=== PATIENT | male | born 1950 | race Caucasian/White ===

== ENCOUNTER → 2020-12-17 | Outpatient (CLI) | payer MEDICARE, OTHER ==
[~2020-12-17] MED LIST: CONSTULOSE 20G/30ML PO; FERROUS GL325 MG/TAB PO; FOLIC ACID 40400 MCG PO; GLUCOPHAGE500 MG/TAB PO; INDERAL 20MG20 MG PO; LOTENSIN 1010 MG/TAB PO; MAGNESIUM250 M1 PO; NEURONTIN300 MG/CAP PO; NYAMYC100000 U/G TP; PRILOSEC 20MG20 MG PO; VITAMIN B125000 MCG PO; VTAMINC250TA PO; XIFAXAN550 MG PO
== END ==
LOC: COL.RAD 07:37
DX: K82.9 Disease of gallbladder, unspecified (principal); K76.89 Other specified diseases of liver; R18.8 Other ascites

== ENCOUNTER 2020-12-21 11:10 | Inpatient (IN) | payer MEDICARE, OTHER ==
[~2020-12-21] VITALS: Ht 172.7 cm; Wt 108.7 kg
[2020-12-21] VITALS (379 sets, daily range): BP systolic 133; BP diastolic 90; PULSE 74; TEMP 97.8; O2SAT 96–100
[2020-12-21 12:44] LABS: INR 1.8 (0.8-3.0); PROTHROMBIN TIME 20.1 SECONDS (9.7-12.8)
[2020-12-21 12:49] LABS: ALBUMIN 2.8 gm/dL (3.5-5.0); BILIRUBIN,TOTAL 3.3 mg/dL (0.0-1.0); CALCIUM 8.4 mg/dL (8.4-10.2); CREATININE, serum 0.9 (0.66-1.25); POTASSIUM 5.6 mmol/L (3.4-5.0); TOTAL PROTEIN 7.2 gm/dL (6.4-8.2)
[2020-12-21 12:55] LABS: BASO % 0.5 % (0.0-2.0); EOS # 0.2 (0.0-0.7); EOS % 4.2 % (0-4.0); GRAN # 3.3 (1.4-6.5); GRAN % 60.9 % (42.2-75.2); LYMPH # 1.3 (1.2-3.4); LYMPH % 24.3 % (20.0-51.0); MEAN CELL VOLUME 107 fl (80.0-100.0); MEAN CORPUSCULAR HGB CONC 33 g/dl (33.0-37.0); MEAN PLATELET VOLUME 11.4 fl (7.4-10.4); MONO # 0.5 (0.1-0.6); MONO % 9.7 % (1.7-9.3); PLATELET COUNT 127 K/mm3 (130-400); RED BLOOD COUNT 2.47 M/mm3 (4.20-5.60); REDCELL DISTRIBUTION WIDTH-CV 16.1 % (11.5-14.5)
[2020-12-21 13:13] LABS: HEMATOCRIT 26.5 % (42.0-52.0); HEMOGLOBIN 8.8 g/dl (13.5-18.0); MEAN CORPUSCULAR HEMOGLOBIN 36 pg (27.0-31.0)
[2020-12-21] MEDS ORDERED: CONSTULOSE 20G/30ML PO (14:27)
[2020-12-21] MEDS ORDERED: VTAMINC250TA PO (14:28)
[2020-12-21] MEDS ORDERED: NYAMYC100000 U/G TP (14:28)
[2020-12-21] MEDS ORDERED: LOTENSIN 1010 MG/TAB PO (14:29)
[2020-12-21] MEDS ORDERED: GLUCOPHAGE500 MG/TAB PO (14:30)
[2020-12-21] MEDS ORDERED: FERROUS GL325 MG/TAB PO (14:30)
[2020-12-21] MEDS ORDERED: NEURONTIN300 MG/CAP PO (14:30)
[2020-12-21] MEDS ORDERED: PRILOSEC 20MG20 MG PO (14:31)
[2020-12-21] MEDS ORDERED: INDERAL 20MG20 MG PO (14:31)
[2020-12-21] MEDS ORDERED: XIFAXAN550 MG PO (14:32)
[2020-12-21 14:49] LABS: COLLECTION METHOD CLEAN CATCH
[2020-12-21 15:29] LABS: MUCOUS Present /lpf; PH 5 (5-8); SQUAMOUS EPITHELIAL None Seen /hpf; URINE APPEARANCE Clear; URINE BACTERIA None Seen /hpf; URINE BILIRUBIN Negative (NEGATIVE); URINE BLOOD Negative (NEGATIVE); URINE COLOR Yellow; URINE GLUCOSE Negative (NEGATIVE); URINE KETONE Negative (NEGATIVE); URINE LEUKOCYTE ESTERASE Negative (NEGATIVE); URINE NITRATE Negative (NEGATIVE); URINE PROTEIN(semi-quant) Negative (NEGATIVE); URINE RBC 0-2 /hpf
[2020-12-21 16:53] LABS: PERITONEAL -POLYMORPHONUCLEAR 25.6 % (0-25); PERITONEAL FLUID RBC 0 /mm3 (0-0)
[2020-12-21] MEDS ORDERED: MAGNESIUM250 M1 PO (18:07)
[2020-12-21] MEDS ORDERED: FOLIC ACID 40400 MCG PO (18:08)
[2020-12-21] MEDS ORDERED: VITAMIN B125000 MCG PO (18:09)
--- NOTE | 2020-12-21 19:20 | NUR ---
Report received from Rickey BANKS. Pt resting with eyes closed at this time.
--- NOTE | 2020-12-21 20:30 | NUR ---
Pt is noted to have a mild, intermittent stridorous sound with exhalation. Resp sats WNL, no signs of distress, lungs CTA. RT, Hina, was walking by, requested second opinion. If persists or worsens will contact provider.
--- NOTE | 2020-12-21 20:30 | NUR ---
Pt noted during assessment a scant amount of bleeding noted to right upper teeth. Gums assessed with abrasion noted. Once pt cleared mouth, no further bleeding noted at this time.
[2020-12-21 20:50] LABS: CALCIUM 8.2 mg/dL (8.4-10.2); CREATININE, serum 0.83 (0.66-1.25); POTASSIUM 5.4 mmol/L (3.4-5.0)
[2020-12-21 20:52] LABS: HEMOGLOBIN 7.9 g/dl (13.5-18.0)
[2020-12-21 21:56] LABS: IRON,SERUM 120 ug/dL (35-150)
[2020-12-21 22:05] LABS: TOTAL IRON BINDING CAPACITY 178 ug/dL (261-462)
--- NOTE | 2020-12-21 22:20 | NUR ---
Pts spouse called for an update on pt. Answered questions which included: pt has received evening dose of Lactulose although has not had a bowel movement. Spouse reports pt had not had one since last night. Vitals are stable. Pt has no complaints. Is alert and oriented, answering questions to what this nurse feels is appropriate. Discussion about [place], moving here, kids, town, , year. Pt had jello and has been drinking water. Is on clear liquid diet. Pt reports understanding of procedure scheduled for tomorrow, even making hand jestures consistent with what procedure will be performed. Denies any questions about procedure at this time. Spouse reports that the only discussion that was had with her was in the ED. Has not spoke with a physician since pt was admitted into this unit. Pt is currently resting with eyes closed in bed. Pt room number provided to spouse. 4 digit passcode was verified prior to the previous conversation. Encouraged to call with any further questions or request for updates. Will call with any change in pt condition through out this shift.
[2020-12-22] VITALS (984 sets, daily range): BP systolic 94–140; BP diastolic 51–88; PULSE 68–79; TEMP 97.3–98.7; O2SAT 95–100
[2020-12-22 04:35] LABS: MEAN CELL VOLUME 106 fl (80.0-100.0); MEAN CORPUSCULAR HGB CONC 33 g/dl (33.0-37.0); MEAN PLATELET VOLUME 10.6 fl (7.4-10.4); PLATELET COUNT 114 K/mm3 (130-400); RED BLOOD COUNT 2.16 M/mm3 (4.20-5.60)
[2020-12-22 04:36] LABS: HEMATOCRIT 22.9 % (42.0-52.0); HEMOGLOBIN 7.6 g/dl (13.5-18.0); MEAN CORPUSCULAR HEMOGLOBIN 35 pg (27.0-31.0)
--- NOTE | 2020-12-22 04:39 | NUR ---
Pt has been pleasant and cooperative with each encounter through out shift. Is currently resting in bed. Requested some wet mouth swabs for dry mouth. Denies any complaints. Is using the urinal at bedside as needed. No further bleeding noted to gums. A&O to self, time, situation and current events.
[2020-12-22 04:45] LABS: ALBUMIN 2.5 gm/dL (3.5-5.0); BILIRUBIN,TOTAL 3.4 mg/dL (0.0-1.0); CREATININE, serum 0.83 (0.66-1.25); POTASSIUM 5.2 mmol/L (3.4-5.0); TOTAL PROTEIN 6.8 gm/dL (6.4-8.2)
--- NOTE | 2020-12-22 09:28 | NUR ---
Initial visit; Patient thanked Wallet Assembler for looking in on him and offering comfort and prayer.
--- NOTE | 2020-12-22 14:29 | NUR ---
PT here at 1420 from express unit. PT is ambulatory with a steady gait. PT moved to bed and has zero complaints. Vitals WNL limits. No bleeding, oozing, or bruising of catheter insertion site.
[2020-12-22 19:15] LABS: FOLATE (FOLIC ACID) 14.8 ng/mL (7.0-31.4)
--- NOTE | 2020-12-22 20:03 | NUR ---
PATIENT LYING ON RIGHT SIDE, AWAKENS EASILY, DENIES PAIN OR WEAKNESS AT THIS TIME.
--- NOTE | 2020-12-23 09:45 | NUR ---
Follow-up visit; Patient appeared to feel better today and stated he was going to start going to moravian and pray. Sales Operations Manager offered God's blessings and wished him well.
[2020-12-24 01:04] VITALS: BP 112/56; PULSE 78; TEMP 97.8
--- NOTE | 2020-12-24 04:36 | NUR ---
PATIENT HAD A GOOD NIGHT SLEEP.DENIES PAIN,NO BLEEDING OBSERVED.POSSIBLE DISCHARGE TODAY.
[2020-12-24 04:47] VITALS: BP 107/79; PULSE 70; TEMP 97.8
[2020-12-24 07:10] LABS: MEAN CELL VOLUME 103 fl (80.0-100.0); MEAN CORPUSCULAR HGB CONC 34 g/dl (33.0-37.0); MEAN PLATELET VOLUME 11.3 fl (7.4-10.4); PLATELET COUNT 75 K/mm3 (130-400); RED BLOOD COUNT 2.14 M/mm3 (4.20-5.60); REDCELL DISTRIBUTION WIDTH-CV 16.5 % (11.5-14.5)
[2020-12-24 07:21] LABS: HEMOGLOBIN 7.4 g/dl (13.5-18.0); MEAN CORPUSCULAR HEMOGLOBIN 35 pg (27.0-31.0)
[2020-12-24 07:35] LABS: ALBUMIN 2.2 gm/dL (3.5-5.0); BILIRUBIN,TOTAL 2.5 mg/dL (0.0-1.0); CALCIUM 8.1 mg/dL (8.4-10.2); CREATININE, serum 0.97 (0.66-1.25); POTASSIUM 4.5 mmol/L (3.4-5.0); TOTAL PROTEIN 6.1 gm/dL (6.4-8.2)
[2020-12-24 08:07] VITALS: BP 105/68; PULSE 72; TEMP 97.7
--- NOTE | 2020-12-24 08:54 | NUR ---
Senior Communications Engineer met with patient to discuss discharge planning. Patient lives in [place] with his , Nella (ph#[phone]) and his son, Tin. Patient states he does not have a primary care physician but is working on it. SW offered to make him an appointment but patient declined. Patient cannot remember what pharmacy he uses but states his would know. Patient does not use any DME and reports independence with ADLS. Patient plans to return home upon discharge. SW will continue to follow.
--- NOTE | 2020-12-24 09:46 | NUR ---
Follow-up visit; Patient and his thanked Record Pressman for coming in and meeting his and offering God's blessings to them.
[2020-12-24] MEDS ORDERED: LASIX 40MG TABL40 MG PO (10:49)
--- NOTE | 2020-12-24 10:54 | NUR ---
Project Production Engineer attended clinical rounds with the team. The patient's was in the room. The patient is independent in the room. PT signed off. The patient's PCP is Dr. Rodriguez. Plan is home.
[2020-12-24] MEDS ORDERED: XIFAXAN550 MG PO (10:55)
--- NOTE | 2020-12-24 12:55 | NUR ---
Discharge instructions given to the patient and his , instructed to take meds as prescribed, follow up as scheduled with PCP and GI, meds as prescribed, scripts sent to pharmacy for him, PICC line removed and post instructions given, leaving with his and BAD WORK GATHERER escorting them out
--- NOTE | 2020-12-24 14:04 | NUR ---
Primary nurse was assisted with [id number] patient care by [employer] [employer] student Rosa Rodriguez and [employer] instructor Monica Vann RN-BC.
[2020-12-24 16:36] LABS: HEMATOCRIT 23.8 % (42.0-52.0); HEMOGLOBIN 7.8 g/dl (13.5-18.0)
[2020-12-24 16:37] LABS: CREATININE, serum 1.06 (0.66-1.25); POTASSIUM 4.9 mmol/L (3.4-5.0)
[2020-12-24 23:51] LABS: HEMATOCRIT 20.3 % (42.0-52.0); MEAN CELL VOLUME 104 fl (80.0-100.0); MEAN CORPUSCULAR HEMOGLOBIN 36 pg (27.0-31.0); MEAN CORPUSCULAR HGB CONC 35 g/dl (33.0-37.0); PLATELET COUNT 88 K/mm3 (130-400); RED BLOOD COUNT 1.96 M/mm3 (4.20-5.60); REDCELL DISTRIBUTION WIDTH-CV 15.8 % (11.5-14.5)
[2020-12-24 23:52] LABS: BASO % 0.5 % (0.0-2.0); EOS # 0.2 (0.0-0.7); EOS % 3.9 % (0-4.0); GRAN # 2.1 (1.4-6.5); GRAN % 51.5 % (42.2-75.2); LYMPH # 1.3 (1.2-3.4); LYMPH % 30.5 % (20.0-51.0); MEAN PLATELET VOLUME 11.2 fl (7.4-10.4); MONO # 0.6 (0.1-0.6); MONO % 13.4 % (1.7-9.3)
== END 2020-12-24 12:58 | disposition home or self-care (01) | DRG 394 ==
LOC: COL.ER 11:10 → ICU 15:16 → MEDICAL 15:16
PROVIDERS: Family Medicine; Hospitalist; Internal Medicine Gastroenterology; Physician Assistant; ADMIT Student in an Organized Health Care Education/Training Program
PROC: 02HV33Z Insertion of Infusion Device into Superior Vena Cava, Percutaneous Approach (ICD-10-PCS; 2020-12-21)
PROC: 0DB68ZX Excision of Stomach, Via Natural or Artificial Opening Endoscopic, Diagnostic (ICD-10-PCS; 2020-12-22)
PROC: 0W9G3ZZ Drainage of Peritoneal Cavity, Percutaneous Approach (ICD-10-PCS; principal; 2020-12-22 10:30)
DX: K64.8 Other hemorrhoids (principal); R18.8 Other ascites; K29.30 Chronic superficial gastritis without bleeding; D53.9 Nutritional anemia, unspecified; K72.90 Hepatic failure, unspecified without coma; K74.60 Unspecified cirrhosis of liver; E87.5 Hyperkalemia; E11.9 Type 2 diabetes mellitus without complications; K21.9 Gastro-esophageal reflux disease without esophagitis; D69.6 Thrombocytopenia, unspecified; I10 Essential (primary) hypertension; E11.40 Type 2 diabetes mellitus with diabetic neuropathy, unspecified; K75.81 Nonalcoholic steatohepatitis (NASH)
CPT/HCPCS: 99223-AI; 99233-AI; 99239; C1751; C1892; C9113; J0696; J2405; J2704; J7030; P9016; Q9967

== ENCOUNTER 2021-01-24 23:27 | Inpatient (IN) | payer MEDICARE, OTHER ==
[~2021-01-24] VITALS: Ht 177.8 cm; Wt 109.7 kg
[~2021-01-24 23:27] MED LIST changes: +LASIX 40MG TABL40 MG PO
[2021-01-24 23:47] LABS: BASO % 0.2 % (0.0-2.0); EOS # 0.1 (0.0-0.7); EOS % 1.6 % (0-4.0); GRAN # 6.7 (1.4-6.5); GRAN % 83.1 % (42.2-75.2); LYMPH # 0.6 (1.2-3.4); LYMPH % 7.1 % (20.0-51.0); MEAN CELL VOLUME 107 fl (80.0-100.0); MEAN CORPUSCULAR HGB CONC 32 g/dl (33.0-37.0); MEAN PLATELET VOLUME 11.8 fl (7.4-10.4); MONO # 0.6 (0.1-0.6); MONO % 7.5 % (1.7-9.3); PLATELET COUNT 83 K/mm3 (130-400); RED BLOOD COUNT 2.08 M/mm3 (4.20-5.60); REDCELL DISTRIBUTION WIDTH-CV 16.3 % (11.5-14.5)
[2021-01-24 23:49] LABS: HEMATOCRIT 22.2 % (42.0-52.0); HEMOGLOBIN 7.2 g/dl (13.5-18.0); MEAN CORPUSCULAR HEMOGLOBIN 35 pg (27.0-31.0)
[2021-01-24 23:52] LABS: INR 2.1 (0.8-3.0); PROTHROMBIN TIME 23.5 SECONDS (9.7-12.8)
[2021-01-24 23:54] LABS: PARTIAL THROMBOPLASTIN TIME 39.2 SECONDS (26.0-37.0)
[2021-01-24 23:55] LABS: ALANINE AMINOTRANSFERASE 34 U/L (4-49); ALBUMIN 2.3 gm/dL (3.5-5.0); ALKALINE PHOSPHATASE 189 U/L (50-136); ANION GAP 9 mmol/L (7-16); AST,SGOT 91 U/L (15-37); BILIRUBIN,TOTAL 2.9 mg/dL (0.0-1.0); BLOOD UREA NITROGEN 28 mg/dL (9-20); CALCIUM 7.8 mg/dL (8.4-10.2); CARBON DIOXIDE 19 mmol/L (22-30); CHLORIDE 106 mmol/L (98-107); CREATININE, serum 1.53 (0.66-1.25); GLUCOSE 147 mg/dL (74-106); LIPASE 206 U/L (23-300); POTASSIUM 4.6 mmol/L (3.4-5.0); SODIUM 134 mmol/L (137-145); TOTAL PROTEIN 6.7 gm/dL (6.4-8.2)
[2021-01-24 23:57] LABS: LACTIC ACID 4.3 mmol/L (0.4-2.0)
[2021-01-25] VITALS (359 sets, daily range): BP systolic 102–125; BP diastolic 61–101; PULSE 67–80; TEMP 98–98.4; O2SAT 88–99
[2021-01-25 00:13] LABS: TROPONIN-I < 0.012 ng/mL (0.000-0.035)
[2021-01-25] MEDS ORDERED: MAGNESIUM250 M1 PO (00:37)
[2021-01-25] MEDS ORDERED: NEURONTIN100 MG/CAP PO (01:50)
[2021-01-25] MEDS ORDERED: TYLENOL PM EXTR1 TA1 PO (01:51)
[2021-01-25 02:29] LABS: PERITONEAL -POLYMORPHONUCLEAR 26.8 % (0-25); PERITONEAL FLUID RBC 4000 /mm3 (0-0)
[2021-01-25 02:41] LABS: BASO % 0.2 % (0.0-2.0); EOS # 0.1 (0.0-0.7); EOS % 0.8 % (0-4.0); GRAN # 4.9 (1.4-6.5); GRAN % 83.2 % (42.2-75.2); LYMPH # 0.4 (1.2-3.4); LYMPH % 6.1 % (20.0-51.0); MEAN CELL VOLUME 105 fl (80.0-100.0); MEAN CORPUSCULAR HGB CONC 32 g/dl (33.0-37.0); MEAN PLATELET VOLUME 11.5 fl (7.4-10.4); MONO # 0.5 (0.1-0.6); MONO % 8.9 % (1.7-9.3); PLATELET COUNT 63 K/mm3 (130-400); RED BLOOD COUNT 2.02 M/mm3 (4.20-5.60); REDCELL DISTRIBUTION WIDTH-CV 16.1 % (11.5-14.5)
[2021-01-25 02:43] LABS: HEMATOCRIT 21.3 % (42.0-52.0); HEMOGLOBIN 6.9 g/dl (13.5-18.0); MEAN CORPUSCULAR HEMOGLOBIN 34 pg (27.0-31.0)
--- NOTE | 2021-01-25 03:43 | NUR ---
Vancomycin Initial Dosing Pharmacy Note Ordering provider: Diego Cevallos MD 70 yo M Indication: Fever of Unknown origin Goal: 15-20 Hx: None identified PMH significant for cirrhosis of the liver w/ MELD score of 25. BMI: 32.4 Wt: 102.3 KG adjBW: 84.7 kg SCr: 1.53 adjBW estCrCl ~ 54 ml/min t 1/2 ~ 14h Tmax: 100.3 WBC WNL LA 4.3 -> 3.3 Micro ordered peritoneal fluid analysis: yellow, hazy, 295 WBC, 4000 RBC, Mononuclear WBC 73.2%, polynuclear WBC 26.8% Pt received 1.5 gm (~15 MG/KG) X1 LD IN ED. Will start a maintenance regimen of 1250 mg q18h. Pt is at risk for not following population based kinetics and accumulation 2/2 elevated BMI. Will follow renal function, micro and plan of care for need to adjust therapy. Thank you for this dosing consult!
--- NOTE | 2021-01-25 03:49 | NUR ---
Patient arrived from the emergency department via stretcher around 310AM. He denies pain, SOB, dizziness. His vitals are stable. Blood Pressure is 118/60. Oxygen saturation is 100% on room air, HR is 69 and respirations are 16 breaths per minute. I spoke with RACHAEL about his hemoglobin level of 6.9 during his labs in the emergency department and they will order one unit of PRBC. He currently has NS running at 100 ml/hr. Zosyn, Vancomyocin and Protonix, all IV.
[2021-01-25 05:21] LABS: BASO % 0.2 % (0.0-2.0); EOS % 0.4 % (0-4.0); GRAN # 4.6 (1.4-6.5); GRAN % 85.2 % (42.2-75.2); LYMPH # 0.4 (1.2-3.4); LYMPH % 6.5 % (20.0-51.0); MEAN CELL VOLUME 107 fl (80.0-100.0); MEAN CORPUSCULAR HGB CONC 32 g/dl (33.0-37.0); MEAN PLATELET VOLUME 11.5 fl (7.4-10.4); MONO # 0.4 (0.1-0.6); MONO % 7.1 % (1.7-9.3); PLATELET COUNT 59 K/mm3 (130-400); RED BLOOD COUNT 1.94 M/mm3 (4.20-5.60); REDCELL DISTRIBUTION WIDTH-CV 16.3 % (11.5-14.5)
[2021-01-25 05:26] LABS: HEMATOCRIT 20.8 % (42.0-52.0); HEMOGLOBIN 6.7 g/dl (13.5-18.0); MEAN CORPUSCULAR HEMOGLOBIN 35 pg (27.0-31.0)
[2021-01-25 05:33] LABS: ALBUMIN 2.2 gm/dL (3.5-5.0); BILIRUBIN,TOTAL 3.3 mg/dL (0.0-1.0); CALCIUM 7.5 mg/dL (8.4-10.2); CREATININE, serum 1.56 (0.66-1.25); TOTAL PROTEIN 6.5 gm/dL (6.4-8.2)
--- NOTE | 2021-01-25 05:35 | NUR ---
The physician from [facility] ordered 1 unit of PRBC for a Hemoglobin of 6.9. I spoke to Lab and they said the order isn't done corrently. I will speak to Antoinette MORENO to put in an order. Blood consent is signed.
[2021-01-25 06:58] LABS: IRON,SERUM 72 ug/dL (35-150)
[2021-01-25 07:07] LABS: TOTAL IRON BINDING CAPACITY 181 ug/dL (261-462)
--- NOTE | 2021-01-25 07:15 | NUR ---
RECEIVED REPORT FROM DARREN ANDERSON. PT SITTING UP IN BED TALKING TO DR HALL. PT ON RA. VSS. CALLL LIGHT WITHIN REACH.
[2021-01-25 07:57] LABS: COLLECTION METHOD CLEAN CATCH
[2021-01-25 08:03] LABS: MUCOUS Present /lpf; PH 5 (5-8); SQUAMOUS EPITHELIAL None Seen /hpf; URINE APPEARANCE Hazy; URINE BACTERIA None Seen /hpf; URINE BILIRUBIN Negative (NEGATIVE); URINE BLOOD Negative (NEGATIVE); URINE COLOR Amber; URINE GLUCOSE Negative (NEGATIVE); URINE KETONE Negative (NEGATIVE); URINE LEUKOCYTE ESTERASE Negative (NEGATIVE); URINE NITRATE Negative (NEGATIVE); URINE PROTEIN(semi-quant) Negative (NEGATIVE); URINE RBC 0-2 /hpf; URINE UROBILINOGEN Negative (NEGATIVE)
--- NOTE | 2021-01-25 09:20 | NUR ---
DR PINTO AT BEDSIDE FOR ASSESSMENT. DISCUSSED POC WITH FAMILY AND PT. RN SPOKE TO PROVIDER ABOUT HGB AND INR. NEW ORDERS RECEIVED.
--- NOTE | 2021-01-25 09:42 | NUR ---
Teacher Of The Deaf/Hard Of Hearing attended clinical rounds with the team then followed up with patient to discuss discharge planning. Patient's , Christy (ph#[phone]) is at bedside. Patient and Christy live in [place] with their son, Tin (ph#[phone]) and report they moved here from [place] a few months ago. Patient's primary care physician is Dr. Rodriguez and he obtains medications from [facility] [address] with no difficulties. Patient does not use any DME and reports independence with ADLS. DIAZ asked about DPOA-HC and patient and his report they had it completed in [place] but have not completed a form here in [place]. Both patient and his , Christy would like to complete a new DPOA-HC form while here in the hospital. Patient would like to designate his , Christy and his son, Tin. Patient had some difficulty initially verbalizing understanding as Tajik is his second language. Patient did eventually verbalize understanding of what he would be signing and again stated he wanted to designate his , Christy. DIAZ and Alfreda BANKS provided witness signature. DIAZ provided original and copies to patient, then placed a copy in patient's chart. Patient plans to return home upon discharge.
--- NOTE | 2021-01-25 11:23 | NUR ---
PT TO EGD AT 1043. REPORT RECEIVED FROM DARREN MA AT 1115, PT BACK IN ROOM AND PLACED ON BEDSIDE CONTINUOUS MONITOR AT 1125. VSS. CALL LIGHT WITHIN REACH. PT FULLY AWAKE AT THIS TIME.
--- NOTE | 2021-01-25 11:30 | NUR ---
NOTIFIED DR PINTO OF FINDINGS FROM EGD
--- NOTE | 2021-01-25 16:30 | NUR ---
DR PINTO AT BEDSIDE DISCUSSING POC WITH PT. NEW ORDERS RECEIVED.
[2021-01-25 17:59] LABS: HEMATOCRIT 24.1 % (42.0-52.0); HEMOGLOBIN 7.8 g/dl (13.5-18.0)
[2021-01-25 18:08] LABS: INR 2.2 (0.8-3.0); PROTHROMBIN TIME 25.1 SECONDS (9.7-12.8)
[2021-01-25 19:14] LABS: FOLATE (FOLIC ACID) 17.8 ng/mL (7.0-31.4)
[2021-01-26] VITALS (341 sets, daily range): BP systolic 102–146; BP diastolic 55–98; PULSE 70–87; TEMP 98–98.5; O2SAT 91–99
--- NOTE | 2021-01-26 05:55 | NUR ---
Patient had an uneventful night. His blood pressures has been a little soft, its bests to take it when he is laying on his back with his arms straight. But it's currently 99/54 with a MAP of 84. He is sleeping but very easily arousable. Asymptomatic and denies pain. He has had four bowel movements over night, with is normal because he gets lactulose. His gums are not bleeding. He has no complaints.
--- NOTE | 2021-01-26 05:57 | NUR ---
Patient's (Christy) called around 0445. I gave her an update of the patients condition, he is stable, recieving antibiotics and fluids and he has no complaints. She was very pleased. She only had one concern. She said the patient has a daughter from [place] that is "Sneaky" and she wanted to limit the communication with that daughter to only vague updates. I told her, the daughter has not called while I was on shift. She said "I will inform the rest of the family about the details when the time is right." I told her we respect her wishes and I'll relay the message to dayshift.
[2021-01-26 06:19] LABS: BASO % 0.8 % (0.0-2.0); EOS # 0.1 (0.0-0.7); GRAN # 1.5 (1.4-6.5); GRAN % 61.2 % (42.2-75.2); LYMPH # 0.5 (1.2-3.4); LYMPH % 20.4 % (20.0-51.0); MEAN CELL VOLUME 104 fl (80.0-100.0); MEAN CORPUSCULAR HGB CONC 32 g/dl (33.0-37.0); MEAN PLATELET VOLUME 11.5 fl (7.4-10.4); MONO # 0.4 (0.1-0.6); MONO % 15.2 % (1.7-9.3); PLATELET COUNT 63 K/mm3 (130-400); RED BLOOD COUNT 2.04 M/mm3 (4.20-5.60)
[2021-01-26 06:25] LABS: HEMATOCRIT 21.2 % (42.0-52.0); HEMOGLOBIN 6.8 g/dl (13.5-18.0); INR 2.3 (0.8-3.0); MEAN CORPUSCULAR HEMOGLOBIN 33 pg (27.0-31.0); PROTHROMBIN TIME 26.3 SECONDS (9.7-12.8)
[2021-01-26 06:29] LABS: ALBUMIN 2.2 gm/dL (3.5-5.0); BILIRUBIN,TOTAL 3.1 mg/dL (0.0-1.0); CALCIUM 7.3 mg/dL (8.4-10.2); CREATININE, serum 1.23 (0.66-1.25); MAGNESIUM 2.2 mg/dL (1.6-2.3); POTASSIUM 4.9 mmol/L (3.4-5.0); TOTAL PROTEIN 6.5 gm/dL (6.4-8.2)
--- NOTE | 2021-01-26 07:05 | NUR ---
RECEIVED REPORT FROM DARREN RIGGS. PT SLEEPING AT THIS TIME. CALL LIGHT WITHIN REACH. VSS.
--- NOTE | 2021-01-26 11:46 | NUR ---
DR PINTO AT BEDSIDE FOR ASSESSMENT AND DISCUSSING POC WITH PT AND . NEW ORDERS RECEIVED.
--- NOTE | 2021-01-26 14:21 | NUR ---
Patient worked with PT/OT and recommendation is for home.
--- NOTE | 2021-01-26 14:35 | NUR ---
SPOKE TO DR HALL ABOUT IF SHE WAS COMING BY TODAY. PHYSICIAN STATES YES AFTER CLINIC. INFORMED PHYSICIAN ABOUT PT HAVING MULTIPLE LIQUID BLACK STOOLS.
--- NOTE | 2021-01-26 16:41 | NUR ---
DR HALL AT BEDSIDE FOR ASSESSMENT. INFORMED PHYSICIAN ABOUT HGB AND PRBC TODAY.
[2021-01-26 17:37] LABS: HEMATOCRIT 26.1 % (42.0-52.0); HEMOGLOBIN 8.7 g/dl (13.5-18.0)
[2021-01-27] VITALS: BP 112/66; PULSE 68; TEMP 98.2
[2021-01-27 04:00] VITALS: BP 125/58; PULSE 73; TEMP 98.5
[2021-01-27 05:54] LABS: BASO % 0.7 % (0.0-2.0); EOS # 0.2 (0.0-0.7); EOS % 7.3 % (0-4.0); GRAN # 1.5 (1.4-6.5); HEMATOCRIT 26.1 % (42.0-52.0); HEMOGLOBIN 8.6 g/dl (13.5-18.0); LYMPH # 0.6 (1.2-3.4); LYMPH % 22.6 % (20.0-51.0); MEAN CELL VOLUME 101 fl (80.0-100.0); MEAN CORPUSCULAR HEMOGLOBIN 33 pg (27.0-31.0); MEAN CORPUSCULAR HGB CONC 33 g/dl (33.0-37.0); MEAN PLATELET VOLUME 11.1 fl (7.4-10.4); MONO # 0.4 (0.1-0.6); MONO % 15.7 % (1.7-9.3); PLATELET COUNT 64 K/mm3 (130-400); RED BLOOD COUNT 2.59 M/mm3 (4.20-5.60)
[2021-01-27 06:05] LABS: PROTHROMBIN TIME 22.9 SECONDS (9.7-12.8)
[2021-01-27 06:07] LABS: ALBUMIN 2.1 gm/dL (3.5-5.0); BILIRUBIN,TOTAL 2.6 mg/dL (0.0-1.0); CALCIUM 7.4 mg/dL (8.4-10.2); CREATININE, serum 0.89 (0.66-1.25); MAGNESIUM 2.1 mg/dL (1.6-2.3); POTASSIUM 4.2 mmol/L (3.4-5.0); TOTAL PROTEIN 6.3 gm/dL (6.4-8.2)
--- NOTE | 2021-01-27 07:05 | NUR ---
RECEIVED REPORT FROM DARREN RIGGS. PT SLEEPING. CALL LIGHT WITHIN REACH. VSS.
[2021-01-27 08:00] VITALS: BP 125/80; PULSE 62; TEMP 98.1
--- NOTE | 2021-01-27 10:25 | NUR ---
Initial visit; Patient and his thanked Gun Stock Maker for looking in on Osmani and offering empathy and prayer for him.
--- NOTE | 2021-01-27 10:53 | NUR ---
Talent Development Director attended clinical rounds with the team and patient will return home today. SW met with patient and patient's to check in. Patient states he is ready to go home and has no concerns doing so. Patient and patient's have no further questions at this time.
== END 2021-01-27 12:26 | disposition home or self-care (01) | DRG 441 ==
LOC: COL.ER 23:27 → ICU 01-25 00:57
PROVIDERS: Emergency Medicine; Internal Medicine; Internal Medicine Gastroenterology; Nurse Practitioner Family
PROC: 0DB68ZX Excision of Stomach, Via Natural or Artificial Opening Endoscopic, Diagnostic (ICD-10-PCS; principal; 2021-01-25 11:00)
DX: K76.6 Portal hypertension (principal); K31.811 Angiodysplasia of stomach and duodenum with bleeding; R18.8 Other ascites; N17.9 Acute kidney failure, unspecified; E87.2 Acidosis; D62 Acute posthemorrhagic anemia; D68.4 Acquired coagulation factor deficiency; K72.90 Hepatic failure, unspecified without coma; K74.60 Unspecified cirrhosis of liver; I10 Essential (primary) hypertension; E11.9 Type 2 diabetes mellitus without complications; K21.9 Gastro-esophageal reflux disease without esophagitis; D53.9 Nutritional anemia, unspecified; D69.6 Thrombocytopenia, unspecified; K75.81 Nonalcoholic steatohepatitis (NASH); K31.89 Other diseases of stomach and duodenum; K29.70 Gastritis, unspecified, without bleeding; K27.9 Peptic ulcer, site unspecified, unspecified as acute or chronic, without hemorrhage or perforation; Z87.891 Personal history of nicotine dependence; Z88.7 Allergy status to serum and vaccine; Z20.828 Contact with and (suspected) exposure to other viral communicable diseases; K44.9 Diaphragmatic hernia without obstruction or gangrene
CPT/HCPCS: 99223-AI; 99233-AI; 99239; C9113; J0696; J1815; J2354; J2543; J2704; J3370; J7030; J7040; J7050; P9016

== ENCOUNTER 2021-03-08 02:12 | Observation (INO) | payer MEDICARE ==
[~2021-03-08] VITALS: Ht 175.3 cm; Wt 94.5 kg
[~2021-03-08 02:12] MED LIST changes: +NEURONTIN100 MG/CAP PO; +TYLENOL PM EXTR1 TA1 PO
[2021-03-08 02:35] LABS: BASO # 0.1 (0.0-0.2); BASO % 0.9 % (0.0-2.0); EOS # 0.2 (0.0-0.7); EOS % 3.8 % (0-4.0); GRAN # 3.7 (1.4-6.5); GRAN % 62.8 % (42.2-75.2); LYMPH # 1.3 (1.2-3.4); LYMPH % 21.4 % (20.0-51.0); MEAN CELL VOLUME 99 fl (80.0-100.0); MEAN CORPUSCULAR HGB CONC 35 g/dl (33.0-37.0); MEAN PLATELET VOLUME 10.5 fl (7.4-10.4); MONO # 0.6 (0.1-0.6); MONO % 10.8 % (1.7-9.3); PLATELET COUNT 114 K/mm3 (130-400); RED BLOOD COUNT 2.79 M/mm3 (4.20-5.60); REDCELL DISTRIBUTION WIDTH-CV 15.8 % (11.5-14.5)
[2021-03-08 02:40] LABS: HEMATOCRIT 27.5 % (42.0-52.0); HEMOGLOBIN 9.6 g/dl (13.5-18.0); MEAN CORPUSCULAR HEMOGLOBIN 34 pg (27.0-31.0)
[2021-03-08 02:49] LABS: ALBUMIN 2.7 gm/dL (3.5-5.0); BILIRUBIN,TOTAL 4.7 mg/dL (0.0-1.0); CALCIUM 8.4 mg/dL (8.4-10.2); CREATININE, serum 0.79 (0.66-1.25); POTASSIUM 3.5 mmol/L (3.4-5.0); TOTAL PROTEIN 7.7 gm/dL (6.4-8.2)
[2021-03-08 02:52] LABS: INR 2.4 (0.8-3.0); PROTHROMBIN TIME 26.8 SECONDS (9.7-12.8)
[2021-03-08] MEDS ORDERED: CRESTOR40 MG PO (02:55)
[2021-03-08] MEDS ORDERED: VITAMIN D 50,1.25 MG PO (02:55)
[2021-03-08] MEDS ORDERED: VITAMIN A10k PO (02:56)
[2021-03-08] MEDS ORDERED: CRESTOR5 MG PO (03:53)
[2021-03-08] MEDS ORDERED: ALDACTONE50 MG PO (03:56)
[2021-03-08] MEDS ORDERED: B-121000 MCG PO (03:59)
[2021-03-08 04:46] VITALS: BP 137/71; PULSE 98; TEMP 98.2
--- NOTE | 2021-03-08 05:27 | NUR ---
Patient up to room 323 via stretcher. Oriented to room and call light. Admission and assessment complete. Started on potassium protocol. PAtient has no other needs at this time. Call light in reach.
[2021-03-08 06:38] LABS: HEMATOCRIT 24.7 % (42.0-52.0); HEMOGLOBIN 8.5 g/dl (13.5-18.0)
[2021-03-08 07:34] VITALS: BP 118/47; PULSE 87; TEMP 98.2
--- NOTE | 2021-03-08 07:48 | NUR ---
Dr. Norwood in to see patient.
--- NOTE | 2021-03-08 08:00 | NUR ---
Patient in bed resting. Alert and oriented x 3. Assessment complete. Denies pain at this time. Denies further needs at this time. Spouse at bedside.
--- NOTE | 2021-03-08 09:58 | NUR ---
DIAZ met with the patient and his , Christy (ph#[phone]), to discuss discharge plan. The patient lives in [place] with his , son (Tin, ph#[phone]), and grandson. He reports independence with ADLs and does not have any DME. The patient's PCP is Dr. Abdon Rodriguez and he receives his medications from [facility]. He reports no difficulties obtaining his meds. The patient's DPOA-HC is in EMR and it designates his . The patient plans to return home with his family upon discharge. No additional needs at this time. *Discharge plan: home with family*
[2021-03-08 12:00] VITALS: BP 139/61; PULSE 93; TEMP 98.9
--- NOTE | 2021-03-08 12:42 | NUR ---
First visit from the motorcycle mechanic apprentice. prayed with patient. No other needs right now.
[2021-03-08 13:27] LABS: HEMATOCRIT 23.4 % (42.0-52.0); HEMOGLOBIN 8.1 g/dl (13.5-18.0)
[2021-03-08 16:00] VITALS: BP 132/65; PULSE 95; TEMP 98.6
--- NOTE | 2021-03-08 18:34 | NUR ---
Patient doing well throughout the day, spouse at bedside. Patient working on drinking bowel prep. Denies pain throughout the day. Denies further needs at this time. Will report off to slot shift manager.
[2021-03-08 19:22] VITALS: BP 117/63; PULSE 114; TEMP 98.3
[2021-03-08 23:20] VITALS: BP 126/54; PULSE 93; TEMP 98.9
[2021-03-09] VITALS (11 sets, daily range): BP systolic 107–141; BP diastolic 46–69; PULSE 87–99; TEMP 98.1–98.4
--- NOTE | 2021-03-09 07:00 | NUR ---
Patient to endoscopy.
[2021-03-09 07:07] LABS: BASO % 0.8 % (0.0-2.0); EOS # 0.2 (0.0-0.7); EOS % 4.1 % (0-4.0); GRAN # 2.3 (1.4-6.5); GRAN % 59.4 % (42.2-75.2); LYMPH # 0.9 (1.2-3.4); LYMPH % 22.4 % (20.0-51.0); MEAN CELL VOLUME 100 fl (80.0-100.0); MEAN CORPUSCULAR HGB CONC 35 g/dl (33.0-37.0); MEAN PLATELET VOLUME 10.8 fl (7.4-10.4); MONO # 0.5 (0.1-0.6); MONO % 12.5 % (1.7-9.3); PLATELET COUNT 90 K/mm3 (130-400); RED BLOOD COUNT 2.27 M/mm3 (4.20-5.60)
[2021-03-09 07:17] LABS: HEMATOCRIT 22.6 % (42.0-52.0); HEMOGLOBIN 7.8 g/dl (13.5-18.0); MEAN CORPUSCULAR HEMOGLOBIN 34 pg (27.0-31.0)
[2021-03-09 07:23] LABS: CALCIUM 7.6 mg/dL (8.4-10.2); CREATININE, serum 0.71 (0.66-1.25); POTASSIUM 3.8 mmol/L (3.4-5.0)
[2021-03-09 07:55] LABS: ALBUMIN 2.3 gm/dL (3.5-5.0); TOTAL PROTEIN 6.5 gm/dL (6.4-8.2)
[2021-03-09 08:10] LABS: BILIRUBIN UNCONJUGATED 3.5 mg/dL (0.0-1.1); BILIRUBIN,DIRECT 1.5 mg/dL (0.0-0.4)
--- NOTE | 2021-03-09 09:56 | NUR ---
Initial visit; Patient and thanked Host/Hostess for looking in on him and offering God's blessings, a good recovery and healing.
[2021-03-09 10:26] LABS: INR 2.4 (0.8-3.0); PROTHROMBIN TIME 27.1 SECONDS (9.7-12.8)
[2021-03-09 15:33] LABS: HEMOGLOBIN 7.9 g/dl (13.5-18.0)
--- NOTE | 2021-03-09 18:47 | NUR ---
Patient has done well thoughout the day. Spouse at bedside through the day. Patient denies additional blood with stools. Has been up ambulating throughout the day. Denies further needs at this time. Will report off to rfid technician.
[2021-03-10 03:59] VITALS: BP 110/60; PULSE 88; TEMP 97.9
[2021-03-10 07:13] VITALS: BP 120/63; PULSE 84; TEMP 97.8
[2021-03-10 07:16] LABS: BASO % 0.3 % (0.0-2.0); EOS # 0.1 (0.0-0.7); EOS % 2.4 % (0-4.0); GRAN # 2.1 (1.4-6.5); GRAN % 70.2 % (42.2-75.2); LYMPH # 0.5 (1.2-3.4); LYMPH % 16.3 % (20.0-51.0); MEAN CELL VOLUME 100 fl (80.0-100.0); MEAN CORPUSCULAR HGB CONC 34 g/dl (33.0-37.0); MEAN PLATELET VOLUME 10.9 fl (7.4-10.4); MONO # 0.3 (0.1-0.6); MONO % 10.5 % (1.7-9.3); PLATELET COUNT 70 K/mm3 (130-400); RED BLOOD COUNT 2.11 M/mm3 (4.20-5.60); REDCELL DISTRIBUTION WIDTH-CV 15.9 % (11.5-14.5)
[2021-03-10 07:20] LABS: HEMATOCRIT 21.1 % (42.0-52.0); HEMOGLOBIN 7.2 g/dl (13.5-18.0); MEAN CORPUSCULAR HEMOGLOBIN 34 pg (27.0-31.0)
[2021-03-10 07:45] LABS: CALCIUM 7.9 mg/dL (8.4-10.2); CREATININE, serum 0.71 (0.66-1.25); POTASSIUM 3.9 mmol/L (3.4-5.0)
[2021-03-10] MEDS ORDERED: ANUSOL-HC SUPPO25 MG RC (07:47)
--- NOTE | 2021-03-10 09:30 | NUR ---
has been in and wrote discharge orders for patient. Patient was eager to leave. Reviewed discharge instructions with pt and his . Was not able to get ahold of offices for follow up appointment, pt stated that would make the appointments as they are ready to leave. INT in left wrist removed. Pt escorted out.
== END 2021-03-10 09:40 | disposition home or self-care (01) ==
LOC: COL.ER 02:12 → SURG 03:20
PROVIDERS: Emergency Medicine; Nurse Practitioner Family; Physician Assistant; ADMIT Student in an Organized Health Care Education/Training Program
DX: K92.1 Melena (principal); K64.2 Third degree hemorrhoids; K64.4 Residual hemorrhoidal skin tags; K63.89 Other specified diseases of intestine; D68.9 Coagulation defect, unspecified; D64.9 Anemia, unspecified; E87.2 Acidosis; K74.60 Unspecified cirrhosis of liver; R18.8 Other ascites; I10 Essential (primary) hypertension; K21.9 Gastro-esophageal reflux disease without esophagitis; K27.9 Peptic ulcer, site unspecified, unspecified as acute or chronic, without hemorrhage or perforation; D69.6 Thrombocytopenia, unspecified; E87.6 Hypokalemia; E11.9 Type 2 diabetes mellitus without complications; Z87.19 Personal history of other diseases of the digestive system; Z79.899 Other long term (current) drug therapy; Z87.891 Personal history of nicotine dependence; Z88.7 Allergy status to serum and vaccine
CPT/HCPCS: 99232-AI; 99238; G0378; J2405; J2704; J2765; J3430; J7030; J7040; J7120

== ENCOUNTER 2021-03-15 08:21 | Emergency (ER) | payer MEDICARE ==
[~2021-03-15] VITALS: Ht 175.3 cm; Wt 94.5 kg
[~2021-03-15 08:21] MED LIST changes: +ALDACTONE50 MG PO; +ANUSOL-HC SUPPO25 MG RC; +B-121000 MCG PO; +CRESTOR40 MG PO; +CRESTOR5 MG PO; +VITAMIN A10k PO; +VITAMIN D 50,1.25 MG PO
[2021-03-15 08:30] VITALS: TEMP 98.1
[2021-03-15 09:01] LABS: BASO % 0.6 % (0.0-2.0); EOS # 0.3 (0.0-0.7); EOS % 4.5 % (0-4.0); GRAN # 4.1 (1.4-6.5); GRAN % 60.7 % (42.2-75.2); LYMPH # 1.5 (1.2-3.4); MEAN CELL VOLUME 99 fl (80.0-100.0); MEAN CORPUSCULAR HGB CONC 34 g/dl (33.0-37.0); MEAN PLATELET VOLUME 10.7 fl (7.4-10.4); MONO # 0.8 (0.1-0.6); MONO % 11.5 % (1.7-9.3); PLATELET COUNT 111 K/mm3 (130-400); RED BLOOD COUNT 2.63 M/mm3 (4.20-5.60); REDCELL DISTRIBUTION WIDTH-CV 16.2 % (11.5-14.5)
[2021-03-15 09:08] LABS: HEMATOCRIT 25.9 % (42.0-52.0); HEMOGLOBIN 8.8 g/dl (13.5-18.0); MEAN CORPUSCULAR HEMOGLOBIN 33 pg (27.0-31.0)
[2021-03-15 09:10] LABS: ALBUMIN 2.5 gm/dL (3.5-5.0); BILIRUBIN,TOTAL 5.7 mg/dL (0.0-1.0); CALCIUM 8.3 mg/dL (8.4-10.2); CREATININE, serum 0.72 (0.66-1.25); POTASSIUM 4.3 mmol/L (3.4-5.0); TOTAL PROTEIN 7.3 gm/dL (6.4-8.2)
[2021-03-15 09:24] LABS: COLLECTION METHOD CLEAN CATCH
[2021-03-15 09:30] LABS: MUCOUS Present /lpf; PH 5 (5-8); SQUAMOUS EPITHELIAL 0-2 /hpf; URINE APPEARANCE Hazy; URINE BACTERIA Rare /hpf; URINE BILIRUBIN Negative (NEGATIVE); URINE BLOOD Negative (NEGATIVE); URINE COLOR Amber; URINE GLUCOSE Negative (NEGATIVE); URINE KETONE Negative (NEGATIVE); URINE LEUKOCYTE ESTERASE Trace (NEGATIVE); URINE NITRATE Negative (NEGATIVE); URINE PROTEIN(semi-quant) Negative (NEGATIVE); URINE RBC 0-2 /hpf
[2021-03-15 10:04] LABS: INR 2.4 (0.8-3.0); PROTHROMBIN TIME 26.3 SECONDS (9.7-12.8)
[2021-03-15 13:55] VITALS: BP 100/74; PULSE 95
== END 2021-03-15 13:55 | disposition home or self-care (01) ==
LOC: COL.ER 08:21
PROVIDERS: Family Medicine
DX: R18.8 Other ascites (principal); I10 Essential (primary) hypertension; E11.9 Type 2 diabetes mellitus without complications; K21.9 Gastro-esophageal reflux disease without esophagitis; D64.9 Anemia, unspecified; Z88.7 Allergy status to serum and vaccine; Z87.891 Personal history of nicotine dependence; Z79.899 Other long term (current) drug therapy

== ENCOUNTER 2021-03-16 17:13 | Inpatient (IN) | payer MEDICARE ==
[~2021-03-16] VITALS: Ht 175.3 cm; Wt 96.8 kg
[2021-03-16 18:00] LABS: BASO % 0.3 % (0.0-2.0); EOS # 0.2 (0.0-0.7); EOS % 2.1 % (0-4.0); GRAN # 6.5 (1.4-6.5); GRAN % 75.1 % (42.2-75.2); LYMPH % 11.7 % (20.0-51.0); MEAN CELL VOLUME 99 fl (80.0-100.0); MEAN CORPUSCULAR HGB CONC 35 g/dl (33.0-37.0); MEAN PLATELET VOLUME 11.7 fl (7.4-10.4); MONO # 0.8 (0.1-0.6); MONO % 9.5 % (1.7-9.3); PLATELET COUNT 118 K/mm3 (130-400); REDCELL DISTRIBUTION WIDTH-CV 16.3 % (11.5-14.5)
[2021-03-16 18:01] LABS: HEMATOCRIT 25.8 % (42.0-52.0); HEMOGLOBIN 8.9 g/dl (13.5-18.0); MEAN CORPUSCULAR HEMOGLOBIN 34 pg (27.0-31.0)
[2021-03-16 19:10] LABS: ALBUMIN 2.3 gm/dL (3.5-5.0); BILIRUBIN,TOTAL 6.3 mg/dL (0.0-1.0); CALCIUM 7.8 mg/dL (8.4-10.2); CREATININE, serum 0.91 (0.66-1.25); POTASSIUM 4.2 mmol/L (3.4-5.0); TOTAL PROTEIN 6.8 gm/dL (6.4-8.2)
[2021-03-16 19:16] LABS: PERITONEAL -POLYMORPHONUCLEAR 49.8 % (0-25); PERITONEAL FLUID RBC 2000 /mm3 (0-0)
[2021-03-16 22:55] VITALS: BP 128/71; PULSE 89; TEMP 97.5
[2021-03-16 22:56] VITALS: BP 128/71; PULSE 89; TEMP 97.5
[2021-03-16 23:00] LABS: INR 2.5 (0.8-3.0); PROTHROMBIN TIME 28.2 SECONDS (9.7-12.8)
[2021-03-16 23:12] VITALS: BP 91/69; PULSE 87; TEMP 97.3
[2021-03-17] VITALS (9 sets, daily range): BP systolic 114–144; BP diastolic 55–68; PULSE 87–103; TEMP 97.8–99.4
--- NOTE | 2021-03-17 00:45 | NUR ---
Resting eyes closed. No s/s of pain noted.
--- NOTE | 2021-03-17 06:28 | NUR ---
Rested off and on this shift. Tolerated clear liquids. Voiding without difficulty. Denied pain/nausea/shortness fo breath. VS remained stable. Denies current needs. Call light in reach. Will monitor.
--- NOTE | 2021-03-17 07:00 | NUR ---
Report received from DARREN Delgado. Pt in bed resting, denies needs, will continue to monitor.
[2021-03-17 07:11] LABS: BASO % 0.4 % (0.0-2.0); EOS # 0.1 (0.0-0.7); EOS % 2.2 % (0-4.0); GRAN # 1.9 (1.4-6.5); GRAN % 69.3 % (42.2-75.2); LYMPH # 0.5 (1.2-3.4); LYMPH % 16.6 % (20.0-51.0); MEAN CELL VOLUME 100 fl (80.0-100.0); MEAN CORPUSCULAR HGB CONC 34 g/dl (33.0-37.0); MEAN PLATELET VOLUME 10.9 fl (7.4-10.4); MONO # 0.3 (0.1-0.6); MONO % 10.8 % (1.7-9.3); PLATELET COUNT 61 K/mm3 (130-400); RED BLOOD COUNT 1.97 M/mm3 (4.20-5.60); REDCELL DISTRIBUTION WIDTH-CV 16.4 % (11.5-14.5)
[2021-03-17 07:21] LABS: HEMATOCRIT 19.6 % (42.0-52.0); HEMOGLOBIN 6.6 g/dl (13.5-18.0); MEAN CORPUSCULAR HEMOGLOBIN 34 pg (27.0-31.0)
--- NOTE | 2021-03-17 08:23 | NUR ---
Assessment charted. Pt updated on labs results and orders for blood transfusion, Dr. Leung to see pt. Per her she states his occult will be positive regardless d/t hemmerhoids and recent scopes so cancel the occult blood. Pt states he had a small BM this morning and it was normal and not dark or bloody. IV albumin to RFA. Urinal provided to quantify output. ABd distended and firm. arrived late at bedside and called Raegan on her cell so she could provide update. Pt denies pain. Will ocnitnue to monitor and transfuse 1 U PRBCs once albumin completed.
--- NOTE | 2021-03-17 09:20 | NUR ---
Initial visit (this stay); Patient and his thanked Beam Carrier Hauler Pusher for offering encouragement and spiritual care.
[2021-03-17 11:22] LABS: HEMATOCRIT 21.2 % (42.0-52.0); HEMOGLOBIN 6.9 g/dl (13.5-18.0)
[2021-03-17 12:40] LABS: COLLECTION METHOD CLEAN CATCH
[2021-03-17 13:06] LABS: MUCOUS Present /lpf; PH 5 (5-8); SQUAMOUS EPITHELIAL 0-2 /hpf; URINE APPEARANCE Hazy; URINE BACTERIA Rare /hpf; URINE BILIRUBIN Negative (NEGATIVE); URINE BLOOD Negative (NEGATIVE); URINE COLOR Yellow; URINE GLUCOSE Negative (NEGATIVE); URINE KETONE Negative (NEGATIVE); URINE LEUKOCYTE ESTERASE Trace (NEGATIVE); URINE NITRATE Negative (NEGATIVE); URINE PROTEIN(semi-quant) Negative (NEGATIVE); URINE RBC 0-2 /hpf; URINE UROBILINOGEN Negative (NEGATIVE)
--- NOTE | 2021-03-17 14:05 | NUR ---
Fastener Sewing Machine Operator met with the patient and the patient's , Christy to complete intake. The patient lives with Christy, their son, [id number], and 6 year old grandson. The patient denies DME use and is mostly independent, Christy assist if needed. The patient's PCP is Dr. Rodriguez. The patient sees Dr. Jimenez, a liver specialist from [facility]. The [facility] and via mail from [facility]. The patient has advanced directives in the EMR. The patient plans to return home at discharge. *Discharge disposition: Home with family
[2021-03-17 14:11] LABS: HEMATOCRIT 23.3 % (42.0-52.0); HEMOGLOBIN 7.7 g/dl (13.5-18.0)
--- NOTE | 2021-03-17 18:26 | NUR ---
Pt received 1U PRBCs earlier this shift. Verified with 2nd RN. Pt educated on s/sx of a transfusion reaction. Denied any symptoms. Maintained slow rate for first 15 minutes and then increased as tolerated. Pt has rested off and on this afternoon, denies pain, eating small amounts of food, minimal appetite. Discussed plan for head CT. Will give bedsisde shift report to nightshift nurse who will resume care.
--- NOTE | 2021-03-17 20:00 | NUR ---
Report received, assumed care for material handler 1st shift. Assessment complete. VS stable. A&Ox3-drowsy. Denies pain/nausea/shortness of breath. Right forearm INT flushes without difficulty. Voiding without difficulty. Very excited that he has made it on the liver transplant list. Plan of care discussed for this shift to include HS meds/pain meds/CT of head/calling for questions/concerns. Call light in reach. Will Monitor.
[2021-03-18 00:11] VITALS: BP 114/51; PULSE 91; TEMP 99.2
--- NOTE | 2021-03-18 00:30 | NUR ---
Resting in bed eyes closed. No s/s of pain or discomfort noted.
[2021-03-18 04:12] VITALS: BP 107/49; BP 116/63; PULSE 80; TEMP 98.2
--- NOTE | 2021-03-18 05:40 | NUR ---
Rested well this shift. Denied nausea/pain/shortness of breath. VS remained stable. INT to right forearm flushes without difficulty. CT scan for liver transplant approval completed last night. Denies current needs. Call light in reach. Will monitor.
[2021-03-18 06:59] LABS: BASO % 0.8 % (0.0-2.0); EOS # 0.2 (0.0-0.7); GRAN # 2.4 (1.4-6.5); LYMPH # 0.7 (1.2-3.4); LYMPH % 18.1 % (20.0-51.0); MEAN CELL VOLUME 100 fl (80.0-100.0); MEAN CORPUSCULAR HGB CONC 34 g/dl (33.0-37.0); MONO # 0.5 (0.1-0.6); PLATELET COUNT 68 K/mm3 (130-400); RED BLOOD COUNT 2.44 M/mm3 (4.20-5.60); REDCELL DISTRIBUTION WIDTH-CV 16.6 % (11.5-14.5)
[2021-03-18 07:02] LABS: HEMATOCRIT 24.3 % (42.0-52.0); HEMOGLOBIN 8.3 g/dl (13.5-18.0); MEAN CORPUSCULAR HEMOGLOBIN 34 pg (27.0-31.0)
[2021-03-18 07:20] LABS: ALBUMIN 2.5 gm/dL (3.5-5.0); BILIRUBIN,TOTAL 3.6 mg/dL (0.0-1.0); CALCIUM 8.2 mg/dL (8.4-10.2); CREATININE, serum 0.74 (0.66-1.25); POTASSIUM 3.5 mmol/L (3.4-5.0); TOTAL PROTEIN 6.3 gm/dL (6.4-8.2)
--- NOTE | 2021-03-18 07:21 | NUR ---
Patient lying awake in bed at this time. Patient denies any pain, discomfort, or further needs at this time. Will continue to monitor. Call light within reach.
[2021-03-18 08:46] VITALS: BP 135/60; PULSE 95; TEMP 98.1
--- NOTE | 2021-03-18 09:36 | NUR ---
Received call from dining center staff. Patient was requesting Enlive TID. He is on AHA/carb consistent diet but when offered Glucerna, he states he drinks regular Ensure at home. May need to change if blood sugars become elevated.
[2021-03-18 12:22] VITALS: BP 125/54; PULSE 95; TEMP 99.3
[2021-03-18 14:29] LABS: CLOSTRIDIUM DIFF A/B NEG; CLOSTRIDIUM DIFF A/B INTERP No C.diff present
[2021-03-18 16:54] VITALS: BP 125/73; PULSE 87; TEMP 98.5
--- NOTE | 2021-03-18 18:27 | NUR ---
Patient has had an ok day. Peritoneal fluid tested positive for ESBL Ecoli, antibiotic change to meropenem from [facility]. Puncture site from yesterdays procedure began to bleed, pressure applied, new dressing placed, SYMONE Canseco, notified. Bleeding has since stopped. Patient is currently resting in bed, at the bedside. Does not C/O any pain, discomfort, or further needs at this time. Patient tested negative for CDIFF. Will continue to monitor. Call light in reach.
[2021-03-18 19:26] VITALS: BP 114/70; PULSE 87; TEMP 98.4
--- NOTE | 2021-03-18 19:30 | NUR ---
RECEIVED CHANGE OF SHIFT REPORT FROM DAY SHIFT NURSE.
[2021-03-18 21:28] LABS: HEMATOCRIT 27.1 % (42.0-52.0); HEMOGLOBIN 9.2 g/dl (13.5-18.0)
--- NOTE | 2021-03-18 22:00 | NUR ---
PATIENT UP IN ROOM PER SELF. DENIES ANY NEEDS. REFUSES SCD WHEN ENCOURAGED TO WEAR SCD WHILE IN BED.
[2021-03-19] VITALS (7 sets, daily range): BP systolic 115–131; BP diastolic 59–79; PULSE 71–99; TEMP 97.9–98.8
[2021-03-19 06:32] LABS: MEAN CELL VOLUME 99 fl (80.0-100.0); MEAN CORPUSCULAR HGB CONC 34 g/dl (33.0-37.0); PLATELET COUNT 63 K/mm3 (130-400); RED BLOOD COUNT 2.34 M/mm3 (4.20-5.60); REDCELL DISTRIBUTION WIDTH-CV 16.6 % (11.5-14.5)
[2021-03-19 06:37] LABS: HEMOGLOBIN 7.8 g/dl (13.5-18.0); MEAN CORPUSCULAR HEMOGLOBIN 33 pg (27.0-31.0)
[2021-03-19 06:38] LABS: HEMATOCRIT 23.1 % (42.0-52.0)
[2021-03-19 06:42] LABS: ALBUMIN 2.3 gm/dL (3.5-5.0); BILIRUBIN,TOTAL 3.3 mg/dL (0.0-1.0); CREATININE, serum 0.73 (0.66-1.25); POTASSIUM 3.6 mmol/L (3.4-5.0)
--- NOTE | 2021-03-19 07:14 | NUR ---
Patient lying awake in bed at this time. Patient denies any pain, discomfort, or further needs at this time. Will continue to monitor. Call light in reach.
--- NOTE | 2021-03-19 07:30 | NUR ---
CHANGE OF SHIFT REPORT GIVEN TO DAY SHIFT NURSE, PUSHPA BANKS.
[2021-03-19 10:07] LABS: INR 2.8 (0.8-3.0); PROTHROMBIN TIME 31.5 SECONDS (9.7-12.8)
--- NOTE | 2021-03-19 10:37 | NUR ---
Scheduled medications given. Assessments performed. Patient C/O discomfort at his paracentesis site. Stated that the dressing was pulling on his skin. Upon redressng the site, it began to bleed. Pressure place, and new dressing secured. SYMONE Vines notified, INR ordered. Patient denies any further pain, discomfort, or needs at this time. VSS. at the bedside. Will continue to monitor. Call light in reach.
--- NOTE | 2021-03-19 11:41 | NUR ---
Brittanie contacted for PICC line placement.
--- NOTE | 2021-03-19 12:40 | NUR ---
Dry Talc Racker attended clinical rounds with the team. The patient's present. The patient will be needing IV antibiotics at discharge. Following rounds, SW met with the patient and to discuss options. They decided on getting IV antibotics at the [facility] Express unit. SW sent referral to Express and informed nursing staff. DIAZ staffed with NAIMA Neely regarding the above information for insurance purposes. *Discharge disposition: Home with OP IV antibiotics at [facility] Express Unit.
--- NOTE | 2021-03-19 12:55 | NUR ---
Spoke with patient's . She became tearful and voiced her frustration and concern over the decline of her . She states that she is overwhelmed. I reassured her that we will do all we can to help support her and her through this difficult time. Logistics Director Sara contacted about visiting patient. Will continue to monitor.
--- NOTE | 2021-03-19 13:20 | NUR ---
Follow-up visit; Patient's had shown some concern to a nurse and appeared somewhat overwhelmed. Toby Maker looked in on Osmani and let them both know Toby Maker is always available to them to listen and help with body/mind/ and spiritual matters. Toby Maker wished them well and offered God's blessings.
--- NOTE | 2021-03-19 16:24 | NUR ---
DIAZ staffed with Odalys Martin. If a the patient's discharges on Tuesday 03/20 the patient is to present himself to the Express Unit at 0900 on Wednesday 03/21 to begin IV antibiotics. DIAZ met with the patient and his to provide the above update. They were in agreeance. *Discharge disposition: Home with IV antibiotics from Express Unit
[2021-03-19 17:59] LABS: HEMATOCRIT 23.1 % (42.0-52.0); HEMOGLOBIN 7.8 g/dl (13.5-18.0)
--- NOTE | 2021-03-19 18:35 | NUR ---
Patient has had an ok day. Abdominal site where paracentesis was preformed has been bleeding periodically during the day. Gauze, ABD pad, and foam tape used to dress site. No active bleeding at this time. PICC line place on RUU for outpatient antibiotic therapy. Albumin being infused. Patient denies any pain, discomfort, or SOA. Will continue to monitor. Call light in reach.
--- NOTE | 2021-03-19 23:26 | NUR ---
Shift assessment completed. Patient A/O x4. Patient denies any pain or discomfort. Denies SOB, N/V, headache, or dizziness. Paracentesis site covered with dressing and tape. Dressing C/D/I at this time. Right upper arm PICC site has small amount of blood oozing from catheter insertion area. Pressure applied. Applied 4x4 guaze over Tegaderm dressing and covered with MARS wrap. All scheduled meds given per DEC. Call light within reach. Patient denies any needs at this time.
[2021-03-20] VITALS (15 sets, daily range): BP systolic 122–153; BP diastolic 51–83; PULSE 86–100; TEMP 97.8–98.9
[2021-03-20 03:36] LABS: BASO % 0.3 % (0.0-2.0); EOS # 0.1 (0.0-0.7); EOS % 4.2 % (0-4.0); GRAN # 1.9 (1.4-6.5); GRAN % 62.9 % (42.2-75.2); LYMPH # 0.6 (1.2-3.4); LYMPH % 18.6 % (20.0-51.0); MEAN CELL VOLUME 99 fl (80.0-100.0); MEAN CORPUSCULAR HGB CONC 34 g/dl (33.0-37.0); MEAN PLATELET VOLUME 10.8 fl (7.4-10.4); MONO # 0.4 (0.1-0.6); MONO % 13.7 % (1.7-9.3); PLATELET COUNT 59 K/mm3 (130-400); RED BLOOD COUNT 2.07 M/mm3 (4.20-5.60); REDCELL DISTRIBUTION WIDTH-CV 16.5 % (11.5-14.5)
[2021-03-20 03:40] LABS: HEMATOCRIT 20.4 % (42.0-52.0); HEMOGLOBIN 6.9 g/dl (13.5-18.0); MEAN CORPUSCULAR HEMOGLOBIN 33 pg (27.0-31.0)
--- NOTE | 2021-03-20 03:49 | NUR ---
Patient has oozing blood from paracentesis site. Dressing moderately soaked with blood. Applied pressure manually and changed dressing to paracentesis site. Right forearm skin bruising site started bleeding. Covered with dry gauze and wrapped with Edmar-wrap. Contacted hospitalist Antoinette, and Antoinette come to the room and assessed patient. VS stable. Will continue to monitor.
[2021-03-20 03:51] LABS: CALCIUM 8.2 mg/dL (8.4-10.2); CREATININE, serum 0.69 (0.66-1.25); POTASSIUM 3.6 mmol/L (3.4-5.0)
[2021-03-20 04:08] LABS: INR 3.8 (0.8-3.0)
--- NOTE | 2021-03-20 04:32 | NUR ---
Blood transfusion started at 04:20 am at 60ml/hr. Blood product verified with 2 RNs. VS stable. Patient alert and oriented. No adverse reaction to transfusion noted at this time. Will continue to monitor.
--- NOTE | 2021-03-20 05:50 | NUR ---
AM dose of Vitamin K given at 04:51 am per hospitalist Collin Curry order.
--- NOTE | 2021-03-20 08:00 | NUR ---
DURING SHIFT REPORT PT REPORTED 6/10 ABD PAIN FROM PARACENTESIS SITE. DRESSING CDI. KIKE ASHBY NOTIFIED OF BLEEDING AT PICC SITE AND PAIN IN ABD. UPON REENTERING ROOM FOR MORNING MEDS PT HAD BLOOD ALL OVER SHEETS AND BIJAN (PRESENT IN AM WELL). R ABD PARACENTESIS SITE COVERED IN DRESSING, DRESSING NOT SATURATED. PT BLEEDING FROM BIJAN PICC SITE. GAUZE ON IT AND MARS WRAP COVERING, BLOOD SATURATING AREA. PT NOTED RFA COBAN AND GAUZE WAS UNCOMORTABLE BECAUSE IT WAS SO TIGHT. TOOK OFF COBAN TO ASSESS SITE TO SEE IF GAUZE WAS STILL NECESSARY, PURPLE BRUISE PRESENT AND PT STARTED BLEEDING FROM SKIN. MORE GAUZE AND COBAN APPLIED TO STOP BLEEDING. SHEETS CHANGED AND CLEAN GOWN BROUGHT IN FOR PT. VITAMIN K GIVEN IV. STAYED AT PT SIDE FOR FULL INFUSION, AFTER THAT FFP WAS VERIFIED AND ADMINISTRATION STARTED, ASSESSMENT PERFORMED, MEDICATIONS GIVEN, PT REFUSED LACTULOSE, PT EDUCATED ON S/S OF A TRANSFUSION REACTION. STAYED WITH PT FOR FIRST 15 MINUTES OF INFUSION. NO S/S OF COMPLICATIONS AT THIS TIME. FAMILY INQUIRING ABOUT LIQUID STITCHES, CONCERN PASSED ALONG TO PHYSICIAN.
[2021-03-20 09:56] LABS: HEMATOCRIT 23.5 % (42.0-52.0); HEMOGLOBIN 7.9 g/dl (13.5-18.0)
--- NOTE | 2021-03-20 15:21 | NUR ---
CYOPRECIPITATE INFUSED. FFP OBTAINED FROM LAB, VERFIED WITH DARREN RASCON. VITALS OBTAINED, INFUSION STARTED, EDUCATED PT ON S/S OF INFUSION REACTION. STAYED NEXT TO PT FOR FIRST FIFTEEN MINUTES. SOME BLEEDING ON LIP NOTICED.
--- NOTE | 2021-03-20 17:43 | NUR ---
REPORT CALLED TO RN AT . REPORT GIVEN TO EMS, EMS ARRIVED, PLATELET INFUSION FINISHED, PICC FLUSHED. PT STANDBY TO EMS CART, PT LEAVING VIA EMS, WILL DRIVE UP TO TOMORROW.
== END 2021-03-20 17:50 | disposition short-term general hospital (02) | DRG 871 ==
LOC: COL.ER 17:13 → MEDICAL 21:05
PROVIDERS: Family Medicine; Internal Medicine Gastroenterology; Physician Assistant; Student in an Organized Health Care Education/Training Program; ADMIT Emergency Medicine
PROC: 02HV33Z Insertion of Infusion Device into Superior Vena Cava, Percutaneous Approach (ICD-10-PCS; principal; 2021-03-19)
DX: A41.51 Sepsis due to Escherichia coli [E. coli] (principal); K65.2 Spontaneous bacterial peritonitis; E87.2 Acidosis; D68.9 Coagulation defect, unspecified; R18.8 Other ascites; D61.818 Other pancytopenia; D69.6 Thrombocytopenia, unspecified; I95.9 Hypotension, unspecified; E11.9 Type 2 diabetes mellitus without complications; K21.9 Gastro-esophageal reflux disease without esophagitis; K74.60 Unspecified cirrhosis of liver; D50.0 Iron deficiency anemia secondary to blood loss (chronic); R53.81 Other malaise; Z87.11 Personal history of peptic ulcer disease; Z87.891 Personal history of nicotine dependence
CPT/HCPCS: 99223-AI; 99232-AI; 99233-AI; C1751; J0696; J1335; J2185; J2543; J3430; J7030; J7120; P9012; P9016; P9047